=== PATIENT | female | born 1995 | race Caucasian/White ===

== ENCOUNTER 2021-02-04 21:06 | Emergency (ER) | payer OTHER ==
[2021-02-04 21:14] VITALS: BP 124/67
[2021-02-04] MEDS ORDERED: RABIES VACCINE 2.5 UNIT SYRINGE IM ONE (21:18)
--- NOTE | 2021-02-04 21:18 | ED Physician Documentation ---
PD HPI WOUND RECHECK - Stated complaint Stated Complaint: BAT EXPOSURE - Chief complaint Chief Complaint: General - Histroy obtained from History obtained from: Patient - History of Present Illness Associated symptoms: Other (here for 2nd rabies vaccine. There had been bat flying in the house. No known bites nor scratches. No wounds.) Recently seen: Emergency Dept (3 days ago for bat exposure. Did not have any problems with the first vaccine.) PD PAST MEDICAL HISTORY - Allergies Allergies/Adverse Reactions: Allergies Allergy/AdvReac Type Severity Reaction Status Date / Time No Known Drug Allergies Allergy Verified 02/04/21 21:09 PD ED PE NORMAL - Vitals Vital signs reviewed: Yes - General General: Alert and oriented X 3, No acute distress, Well developed/nourished Results - Vitals Vitals: Vital Signs - 24 hr 02/04/21 21:09 Temperature 36.6 C Heart Rate 88 Respiratory 16 Rate Blood Pressure 124/67 O2 Saturation 99 Oxygen O2 Source Room air PD MEDICAL DECISION MAKING - ED course Complexity details: considered differential (given 2nd vaccine for rabies in the series. ), d/w patient Departure - Departure Disposition: 01 Home, Self Care Clinical Impression: Rabies, need for prophylactic vaccination against Condition: Stable Record reviewed to determine appropriate education?: Yes Comments: You can use Tylenol or ibuprofen if needed for mild pains associated with the vaccine site. Return if any general reactions. Otherwise you have 2 more vaccines in the series 7 and 14 days after the first 1. Discharge Date/Time: 02/04/21 21:45
== END 2021-02-04 21:45 | disposition home or self-care (01) ==
LOC: ED 21:06
DX: Z29.14 Encounter for prophylactic rabies immune globulin (principal)
CPT/HCPCS: 90471